=== PATIENT | male | born 1960 | race African-American/Black ===

== ENCOUNTER 2021-07-27 15:19 | Inpatient (IN) | payer MEDICARE, MEDICAID ==
[~2021-07-27] VITALS: Ht 152.4 cm; Wt 54.0 kg
--- NOTE | ~2021-07-27 | CON ---
[address] [address] CONSULTATION Name: AIMEE RINALDI Room: [address] IN .R.#: [id number] Admission: 07/28/21 Attend Phys: Bo Villanueva MD Discharge: Date of : 56 Report #: [id number] THIS REPORT FOR: cc: PINA - No family physician/PCP PINA - No family physician/PCP Jazzmine Jimenez MD ~ DATE OF CONSULTATION: 08/02/2021 REASON FOR CONSULTATION: Colon mass. REQUESTING PHYSICIAN: Bo Villanueva MD HISTORY OF PRESENT ILLNESS: The patient is a 60-year-old -Cuban male who presented to Emergency Room with complaints of fever and cough, sneezing. He was diagnosed with influenza B. On admission, he also mentioned that he has been having vomiting for over 2 weeks and has not had a bowel movement for several weeks. He had a CT of abdomen and pelvis done, which showed colonic mass with multiple liver masses. Ascending colonic mass was obstructing. Dr. Cali was consulted for surgical evaluation. The patient underwent right hemicolectomy. Oncology consult is requested. He is doing okay. He does not have fevers. He is a quite poor historian. He says he came to the hospital because he had ____ "not because of abdominal pain." He does not know if he had been losing weight. He does not have nausea. Currently, he is recovering from surgery quite well. PAST MEDICAL HISTORY: Hypertension. SOCIAL HISTORY: He lives alone. He says he does not have any family. He uses marijuana. He lives in the "hotel." FAMILY HISTORY: Noncontributory. REVIEW OF SYSTEMS: See above, otherwise all other systems negative. PHYSICAL EXAMINATION: GENERAL: Reveals a thin man with poor dentition, not in acute distress. VITAL SIGNS: Blood pressure 128/83, heart rate is 82, temperature 98.2, respirations 16. HEENT: Multiple tooth absent. NECK: Supple. HEART: Normal S1, S2. LUNGS: Clear. ABDOMEN: Soft. EXTREMITIES: Lower extremities, no edema. MENTAL STATUS: Alert, oriented x 3. There [place] [address] CONSULTATION Name: AIMEE RINALDI Room: [address] IN [facility]#: [id number] Admission: 07/28/21 Attend Phys: Bo Villanueva MD Discharge: Date of : 56 Report #: [id number] lymphadenopathy. SKIN: Does not reveal rash. LABORATORY DATA: WBC 6.3, hemoglobin 8.8, platelets 265. MCV 74.6. Sodium 133, potassium 3.0, BUN 11, creatinine 0.8. CEA 625, ferritin 28, total iron 16, TIBC 216. CT of chest, abdomen and pelvis reviewed, it shows ascending colon mass obstructing, multiple liver lesions suggestive of hemangiomas, metastatic disease not excluded. ASSESSMENT AND PLAN: 1. Colon cancer, most likely adenocarcinoma, status post surgery. Pathology is pending. Liver lesions are suspicious for metastatic disease. CEA is very high. I am not sure if biopsy of liver lesions has been done during surgery. If not, this needs to be evaluated. Recommend to consider MRI of the abdomen and possible biopsy of liver lesions if MRI shows metastatic disease. 2. Anemia, iron deficiency. The patient will need iron supplementation when he is discharged from the hospital. We will make final recommendations regarding systemic chemotherapy if pathology results are reviewed. Thank you very much for allowing me to participate in the care of this patient. By: 1839 27Jazzmine Jimenez MD /nt
--- NOTE | ~2021-07-27 | OP ---
[address] [address] OPERATIVE REPORT Name: AIMEE RINALDI Room: [address] IN .R.#: [id number] Admission: 07/28/21 Attend Phys: Bo Villanueva MD Discharge: Date of : 56 Report #: [id number] THIS REPORT FOR: cc: FAM - No family physician/PCP FAM - No family physician/PCP Abelino Cali DO ~ DATE OF SURGERY: 07/30/2021 PREOPERATIVE DIAGNOSIS: Obstructing right colon tumor and small bowel obstruction. POSTOPERATIVE DIAGNOSIS: Obstructing right colon tumor and small bowel obstruction. PROCEDURES PERFORMED: 1. Exploratory laparotomy. 2. Right hemicolectomy. 3. Lysis of adhesions. 4. Placement of Prevena wound dressing. SURGEON: Abelino Cali DO CO-SURGEON: Brenden, PGY5. FOLDER SEAMER: Emily, PGY-1. ANESTHESIA: General. ESTIMATED BLOOD LOSS: 30. SPECIMEN: Right colon. HISTORY OF PRESENT ILLNESS: The patient is a 60-year-old male who was admitted from the Emergency Room with concern for a small-bowel obstruction on CT scan, he did have evidence of what looks like an obstructing cecal mass. We discussed the need for urgent surgery to include right hemicolectomy. Risks, benefits and alternatives discussed at length with him and he agreed to proceed with surgery. DESCRIPTION OF PROCEDURE: After consent was obtained, the patient was taken to the operating room and placed in the supine position. SCDs applied to bilateral lower extremities. The patient was safety belted to the bed, 2 grams Ancef and 500 mg of Flagyl were given for surgical prophylaxis. The patient underwent general endotracheal anesthesia without any complications. The patient's abdomen was prepped and draped in the standard sterile fashion. Arreola catheter was placed. Timeout was performed to confirm patient and procedure, a 10 blade scalpel was used to make an incision from just below the [place] [address] OPERATIVE REPORT Name: AIMEE RINALDI Room: [address] IN [facility].#: [id number] Admission: 07/28/21 Attend Phys: Bo Villanueva MD Discharge: Date of : 56 Report #: [id number] xiphoid. Electrocautery was used for hemostasis and to dissect down to the level of fascia along the extent of the incision. The fascia was scored, grasped between 2 Kochers and a finger was used to bluntly into the peritoneum. Finger was used to guide further extension of the fascia along the entirety of the incision. We immediately encountered a very dilated small intestine. The small intestine was eviscerated from the abdomen. The right colon was visualized and the cecum appeared to be very dilated. Upon palpation along the ascending colon, an obstructing mass was palpated with obvious decompression of the transverse colon. The liver was then palpated and the surface of the liver appeared to be smooth. There was one small lesion in the very far lateral aspect of the liver and based on imaging appeared to be a possible hemangioma. Sigmoid colon was palpated down towards the rectum. There was no evidence of any other masses. At this point, the cecum was mobilized from the lateral wall of the abdomen and externalized. This was carried along the ascending colon to the mid transverse colon. Once the colon was eviscerated from the abdomen, our plane of resection was planned. The transverse colon was resected just proximal to the right branch of the middle colic artery. The terminal ileum was then resected and the LigaSure device was used to ligate the mesocolon. Specimen included distal terminal ileum, cecum, ascending colon and proximal transverse colon. This was sent for pathologic evaluation. We then ran the small bowel from the terminal ileum to the ligament of Treitz and tried to milk as much of the fluid back into the stomach and fluid was suctioned out via the NG tube by the anesthesia team. At this point, there were some interloop adhesions between the mid and small bowel that were taken down carefully with Metzenbaum scissors and electrocautery. Once those adhesions were freed up, we turned our attention towards creating our anastomosis. A 70 RENETTA stapling device was used to create a common channel between the transverse colon and terminal ileum. A TA 60 device was used to close our common enterotomy. Three crotch stitches using a 2-0 Vicryl were placed at the termination of our staple line. The mesenteric defect was reapproximated with a running 2-0 Vicryl suture. At this point, the abdomen was irrigated with 2 liters of warm saline. All the small bowel was inserted back into the abdomen. Two sutures of #1 looped PDS were used to reapproximate the fascia in the midline. Subcutaneous tissue was carefully approximated with 3-0 Vicryl. The skin incision reapproximated with philipp. A 13 cm Prevena wound VAC was placed over the incision. All needle, instrument and sponge counts correct at the end of the case. The patient was then awoken from general anesthesia and transferred to PACU in stable condition. By: 0904 [id number] Cali, DO /nt
[2021-07-27 15:44] VITALS: BP 155/112
[2021-07-27 16:16] LABS: INFLUENZA A ANTIGEN Negative (Negative)
[2021-07-27 23:45] LABS: ABSOLUTE LYMPHOCYTES 0.4 thou/uL (0.8-5.3); ABSOLUTE MONOCYTES 0.8 thou/uL (0.0-1.2); ABSOLUTE NEUTROPHILS 8.9 thou/uL (1.6-8.1); BASOPHILS 0.1 %; HEMATOCRIT 42.4 % (42.0-52.0); LYMPHOCYTES 3.8 %; MCH 24.7 pg (26.0-34.0); MCHC 33.1 g/dL (28.0-37.0); MCV 74.6 fL (80.0-100.0); MONOCYTES 7.9 %; MPV 8.3 fl. (7.2-11.1); NUCLEATED RBCS 0 /100WBC; PLATELET COUNT* 465 thou/uL (150-400); POLYS 88.2 %; RBC 5.69 mil/uL (4.50-6.00); RDW-CV 16.6 % (10.5-14.5); WBC 10.1 thou/uL (4.0-11.0)
[2021-07-28 00:23] LABS: CALCIUM 9.9 mg/dL (8.5-10.1); CREATININE 1.7 mg/dL (0.6-1.3); POTASSIUM 3.9 mmol/L (3.5-5.1)
[2021-07-28 07:42] VITALS: BP 142/104
[2021-07-28 10:36] VITALS: BP 142/107
[2021-07-28 11:04] VITALS: BP 157/119
[2021-07-28 11:42] LABS: CALCIUM 8.6 mg/dL (8.5-10.1); CREATININE 1.3 mg/dL (0.6-1.3); POTASSIUM 3.2 mmol/L (3.5-5.1)
[2021-07-28 17:32] VITALS: BP 156/105
[2021-07-28 20:00] VITALS: BP 146/96
[2021-07-29 04:45] LABS: ABSOLUTE LYMPHOCYTES 0.6 thou/uL (0.8-5.3); ABSOLUTE NEUTROPHILS 5.3 thou/uL (1.6-8.1); BASOPHILS 0.3 %; EOSINOPHILS 0.5 %; HEMATOCRIT 32.7 % (42.0-52.0); LYMPHOCYTES 8.9 %; MCH 24.6 pg (26.0-34.0); MCHC 33.1 g/dL (28.0-37.0); MCV 74.2 fL (80.0-100.0); MONOCYTES 14.9 %; MPV 8.5 fl. (7.2-11.1); NUCLEATED RBCS 0 /100WBC; POLYS 75.4 %; RBC 4.41 mil/uL (4.50-6.00); RDW-CV 16.6 % (10.5-14.5)
[2021-07-29 04:46] LABS: HEMOGLOBIN 10.8 gm/dL (14.0-18.0); PLATELET COUNT* 284 thou/uL (150-400)
[2021-07-29 04:51] LABS: ALBUMIN 2.7 g/dL (3.4-5.0); CALCIUM 8.2 mg/dL (8.5-10.1); POTASSIUM 3.4 mmol/L (3.5-5.1); TOTAL BILIRUBIN 0.4 mg/dL (<0.1-1.0); TOTAL PROTEIN 6.1 g/dL (6.4-8.2)
[2021-07-29 05:16] LABS: % SATURATION 7 % (20-39); IRON 16 ug/dL (50-175)
[2021-07-29 06:00] VITALS: BP 139/100
[2021-07-29 06:00] LABS: ESR (SEDRATE) 5 mm/hr (0-20)
--- NOTE | 2021-07-29 10:59 | EKG ---
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 : 1960 Requested By: Abelino Cali Order Number: [id number] Marga MD: Sixto Aguilar Measurements Intervals [place] Rate: 80 P: NC: QRS: -35 QRSD: 101 T: 45 QT: 379 QTc: 438 Interpretive Statements Sinus rhythm Left ventricular hypertrophy Inferior infarct, old Anterior infarct, old Baseline wander in lead(s) V2,V6 No previous ECG available for comparison Electronically Signed On 07-29-2021 10:59:22 BALLET TEACHER by Sixto Aguilar [email or web address] <ELECTRONICALLY SIGNED> By: Sixto Aguilar MD, FAC 07/29/21 1059 1029 1029 Sixto Aguilar MD, [facility] /EPI
[2021-07-29 11:24] VITALS: BP 138/77
[2021-07-29 17:25] VITALS: BP 133/76
[2021-07-29 20:23] VITALS: BP 143/107
[2021-07-30 00:45] VITALS: BP 140/99
[2021-07-30 01:32] VITALS: BP 140/99
[2021-07-30 04:12] LABS: ABSOLUTE LYMPHOCYTES 0.5 thou/uL (0.8-5.3); ABSOLUTE NEUTROPHILS 8.2 thou/uL (1.6-8.1); BASOPHILS 0.2 %; HEMATOCRIT 36.4 % (42.0-52.0); HEMOGLOBIN 11.9 gm/dL (14.0-18.0); LYMPHOCYTES 4.7 %; MCH 24.3 pg (26.0-34.0); MCHC 32.6 g/dL (28.0-37.0); MCV 74.5 fL (80.0-100.0); MONOCYTES 10.7 %; MPV 8.3 fl. (7.2-11.1); NUCLEATED RBCS 0 /100WBC; POLYS 84.4 %; RBC 4.88 mil/uL (4.50-6.00); RDW-CV 16.7 % (10.5-14.5); WBC 9.7 thou/uL (4.0-11.0)
[2021-07-30 04:31] LABS: INR 1.4; PROTIME 14.5 Seconds (9.20-11.50)
[2021-07-30 04:34] LABS: CALCIUM 8.5 mg/dL (8.5-10.1); CREATININE 0.8 mg/dL (0.6-1.3); MAGNESIUM 2.1 mg/dL (1.8-2.4); PHOSPHORUS* 2.2 mg/dL (2.5-4.9)
[2021-07-30 04:44] LABS: PLATELET COUNT* 375 thou/uL (150-400)
[2021-07-30 12:02] VITALS: BP 135/99
[2021-07-30 12:09] VITALS: BP 128/90
[2021-07-30 17:42] VITALS: BP 133/88
[2021-07-30 20:00] VITALS: BP 134/102
[2021-07-31] VITALS: BP 118/81
[2021-07-31 04:00] VITALS: BP 112/78
[2021-07-31 04:36] LABS: HEMATOCRIT 36.8 % (42.0-52.0); MCH 24.1 pg (26.0-34.0); MCHC 32.5 g/dL (28.0-37.0); MCV 73.9 fL (80.0-100.0); NUCLEATED RBCS 0 /100WBC; PLATELET COUNT* 358 thou/uL (150-400); RBC 4.98 mil/uL (4.50-6.00); RDW-CV 16.7 % (10.5-14.5); WBC 15.1 thou/uL (4.0-11.0)
[2021-07-31 05:05] LABS: CALCIUM 7.9 mg/dL (8.5-10.1); CREATININE 1.1 mg/dL (0.6-1.3); POTASSIUM 3.1 mmol/L (3.5-5.1)
[2021-07-31 06:34] LABS: ABSOLUTE LYMPHOCYTES 0.5 thou/uL (0.8-5.3); ABSOLUTE MONOCYTES 1.1 thou/uL (0.0-1.2); ABSOLUTE NEUTROPHILS 13.6 thou/uL (1.6-8.1); PLATELET ESTIMATE ADEQUATE
[2021-07-31 06:35] LABS: HYPOCHROMASIA 2+; MICROCYTES 1+; TARGET CELLS 1+
[2021-07-31 09:00] VITALS: BP 122/86
[2021-07-31 13:44] VITALS: BP 126/88
[2021-07-31 19:02] VITALS: BP 126/89
[2021-07-31 20:00] VITALS: BP 111/78
[2021-08-01] VITALS: BP 138/100
[2021-08-01 08:10] VITALS: BP 129/87
[2021-08-01 12:51] LABS: ABSOLUTE LYMPHOCYTES 0.7 thou/uL (0.8-5.3); ABSOLUTE MONOCYTES 0.7 thou/uL (0.0-1.2); ABSOLUTE NEUTROPHILS 10.7 thou/uL (1.6-8.1); BASOPHILS 0.1 %; EOSINOPHILS 0.2 %; HEMATOCRIT 28.2 % (42.0-52.0); MCH 24.1 pg (26.0-34.0); MCHC 32.2 g/dL (28.0-37.0); MONOCYTES 6.1 %; MPV 7.9 fl. (7.2-11.1); NUCLEATED RBCS 0 /100WBC; POLYS 87.6 %; RBC 3.75 mil/uL (4.50-6.00); WBC 12.2 thou/uL (4.0-11.0)
[2021-08-01 12:58] LABS: HEMOGLOBIN 9.1 gm/dL (14.0-18.0); PLATELET COUNT* 266 thou/uL (150-400)
[2021-08-01 13:07] LABS: CALCIUM 7.6 mg/dL (8.5-10.1); MAGNESIUM 1.9 mg/dL (1.8-2.4); PHOSPHORUS* 1.7 mg/dL (2.5-4.9)
[2021-08-01 13:10] LABS: POTASSIUM 2.9 mmol/L (3.5-5.1)
[2021-08-01 16:00] VITALS: BP 128/93
[2021-08-01 20:00] VITALS: BP 108/83
[2021-08-02 02:26] VITALS: BP 128/83
[2021-08-02 08:35] LABS: HEMOGLOBIN 8.8 gm/dL (14.0-18.0); MCH 24.3 pg (26.0-34.0); MCHC 32.5 g/dL (28.0-37.0); MCV 74.6 fL (80.0-100.0); MPV 7.7 fl. (7.2-11.1); RBC 3.62 mil/uL (4.50-6.00); RDW-CV 17.2 % (10.5-14.5); WBC 6.3 thou/uL (4.0-11.0)
[2021-08-02 08:49] LABS: CALCIUM 7.5 mg/dL (8.5-10.1); CREATININE 0.8 mg/dL (0.6-1.3); MAGNESIUM 1.7 mg/dL (1.8-2.4)
[2021-08-02 09:40] VITALS: BP 139/96
[2021-08-02 12:45] VITALS: BP 150/105
[2021-08-02 16:15] LABS: MAGNESIUM 1.6 mg/dL (1.8-2.4); POTASSIUM 3.1 mmol/L (3.5-5.1)
[2021-08-02 20:00] VITALS: BP 138/98
[2021-08-02 22:17] LABS: MAGNESIUM 1.7 mg/dL (1.8-2.4); POTASSIUM 3.2 mmol/L (3.5-5.1)
[2021-08-03 01:26] VITALS: BP 139/95
[2021-08-03 05:49] LABS: HEMATOCRIT 28.3 % (42.0-52.0); HEMOGLOBIN 9.4 gm/dL (14.0-18.0); MCH 24.3 pg (26.0-34.0); MCV 73.5 fL (80.0-100.0); MPV 7.8 fl. (7.2-11.1); RBC 3.85 mil/uL (4.50-6.00); RDW-CV 17.1 % (10.5-14.5); WBC 5.4 thou/uL (4.0-11.0)
[2021-08-03 06:00] LABS: CALCIUM 7.6 mg/dL (8.5-10.1); CREATININE 0.8 mg/dL (0.6-1.3); POTASSIUM 3.5 mmol/L (3.5-5.1)
[2021-08-03 08:00] VITALS: BP 147/84
[2021-08-03 11:50] VITALS: BP 152/103
[2021-08-03 14:05] VITALS: BP 152/103
[2021-08-03] MEDS ORDERED: IRON325 PO (14:35)
[2021-08-03 15:47] VITALS: BP 152/103
--- NOTE | 2021-08-05 12:06 | PATH ---
[address] [address] PATHOLOGY RPT PROCEDURE Name: SANJAY RINALDI Room: [address] IN [facility].#: [id number] Admission: 07/28/21 Date of : 56 Discharge: 08/03/21 Report #: [id number] Path Case #: [id number] LCA Accession Number: [id number] . 01 Material submitted: . colon - RIGHT COLON. Modifiers: right . 01 Clinical history: . EXPLORATORY LAPAROTOMY(+++) HEMICOLECTOMY(+++) RIGHT COLON TUMOR, SAMLL BOWEL OBSTRUCTION AND POSSIBLE LIVER MASS . 02 Diagnosis: Right colon: - CIRCUMFERENTIAL COLONIC ADENOCARCINOMA, MODERATELY DIFFERENTIATED, FORMING A MASS MEASURING 6 X 3.8 CM IN ASCENDING COLON, WITH TRANSMURAL INVASION TO FOCALLY INVOLVE INKED FREE SEROSAL SURFACE. - Proximal and distal surgical margins free of involvement. - TWO OF EIGHT PERICOLIC LYMPH NODES WITH METASTATIC ADENOCARCINOMA (2/8). SEE COMMENT. (SIMON:rayne; 08/04/2021) . . CASE SUMMARY: (COLON AND RECTUM) Standard(s): AJCC-UICC 8 . SPECIMEN Procedure ___ Right hemicolectomy TUMOR Tumor Site ___ Ascending colon Histologic Type ___ Adenocarcinoma Histologic Grade ___ G2, moderately differentiated Tumor Size ___ Greatest dimension in Centimeters: 6 cm Tumor Extent ___ Invades visceral peritoneum (including tumor continuous with serosal surface through area of inflammation Macroscopic Tumor Perforation ___ Not identified Lymphovascular Invasion: ____ Not identified Perineural Invasion ____ Not identified Number of Tumor Buds (per hot spot field): 1 per hot spot field Tumor [place] Score: Low (0-4) [place] [address] PATHOLOGY RPT PROCEDURE Name: SANJAY RINALDI Room: [address]#: [id number] Admission: 07/28/21 Date of : 56 Discharge: 08/03/21 Report #: [id number] Path Case #: [id number] . Type of Polyp in Which Invasive Carcinoma Arose ___ Tubular adenoma Treatment Effect ___ No known presurgical therapy . MARGINS Margin Status for Invasive Carcinoma ___ All margins negative for invasive carcinoma +Closest Margin(s) to Invasive Carcinoma ___ Radial (circumferential) +Distance from Invasive Carcinoma to Closest Margin Specify in Centimeters: 0.3 cm Margin Status for Non-Invasive Tumor ___ All margins negative for high-grade dysplasia / intramucosal carcinoma and low-grade dysplasia REGIONAL LYMPH NODES Regional Lymph Node Status ___ Tumor present in regional lymph nodes . Number of lymph nodes with tumor: 2 Number of lymph nodes examined: 8 Tumor Deposits: ___ Not identified. Distant Metastases ___ Not applicable . . PATHOLOGIC STAGE CLASSIFICATION (pTNM, AJCC 8th Edition) . pT Category ___ pT4a: Tumor invades# through the visceral peritoneum (including gross perforation of the bowel through tumor and continuous invasion of tumor through areas of inflammation to the surface visceral peritoneum) . pN Category ___ pN1b: Two or three regional lymph nodes are positive . ADDITIONAL FINDINGS +Additional Findings ___ Other (specify): Benign appendix and terminal ileum . SPECIAL STUDIES MICROSATELLITE INSTABILITY REPORT (MSI): . Specimen: Formalin fixed paraffin embedded tissue Specimen ID: [id number], [id number] Reason for testing: To evaluate for evidence of defective mismatch [place] [address] PATHOLOGY RPT PROCEDURE Name: SANJAY RINALDI Fabiana Room: [address]#: [id number] Admission: 07/28/21 Date of : 56 Discharge: 08/03/21 Report #: [id number] Path Case #: [id number] Method: Immunohistochemical staining for the presence or absence of protein expression of one or more of the following MMR protein markers: MLH1, MSH2, MSH6 and PMS2. Tumor type: Colonic adenocarcinoma . Results: MLH1 - Preserved MSH2 - Preserved MSH6 - Preserved PMS2 - Preserved . Mismatch Repair Status: MMR Proficient (MMR-P) . Interpretation: . (MMR-P) All four MMR proteins are preserved within tumor cells. This suggests the presence of normal DNA mismatch repair function within the tumor and an observable defect in mismatch repair is not identified. The likelihood that this patient has an inherited germline mutation syndrome due to defective mismatch repair is reduced but not totally eliminated. If the patient has a strong personal or family history of HPNCC/Aguirre syndrome related cancers (colorectal, endometrial, gastric, ovarian, pancreatic, ureter/renal pelvis, biliary tract, brain, small bowel and Kirsten-Puneet syndrome), consider MSI testing by PCR methodology. Suggest clinical correlation and follow up. . These test results are designed for screening purposes only and are useful tools in identifying cancer patients that are more likely to have Aguirre Syndrome related diagnoses. Tests should be interpreted in the context of clinical findings, family history and laboratory data. Abnormal IHC results for MMR protein expression are not considered diagnostic for Aguirre Syndrome. . (SIMON:rayne; 08/04/2021) S 08/04/2021 1731 Local . 02 Comment: The tumor is seen to directly invade to involve the inked free serosal surface in A8. A tumor metastasis essentially obliterates the lymph node in A14. Blind search for additional possible lymph nodes (A15 through A20), resulted in two incidental additional lymph nodes (A17 and A18). A[address] Arcadio Kwong on 08/04/2021, who agrees with the diagnosis. (SIMON:rayne; 08/04/2021) . 02 Electronically signed: . Israel Slater MD, Pathologist NPI- [id number] [place] [address] PATHOLOGY RPT PROCEDURE Name: SANJAY RINALDI Room: [address] IN M.R.#: [id number] Admission: 07/28/21 Date of : 56 Discharge: 08/03/21 Report #: [id number] Path Case #: [id number] . 01 Gross description: . Received in formalin labeled "Sanjay Rinaldi, right colon" is a hemicolectomy specimen consisting of a segment of terminal ileum (5.2 cm in length, 4.7 cm in diameter), cecum (11.0 x 9.5 x 5.5 cm), appendix (6.5 cm in length, 1.5 cm in diameter), and proximal right colon (6.5 cm in length, ranging from 4.3-7.0 cm in diameter). The proximal and distal margins are closed with staple lines. The serosa is balderas-purple and smooth with a puckered area near the distal aspect measuring 6.0 x 2.0 cm. The specimen is opened to reveal a strictured area and corresponding balderas-brown exophytic mass in the right colon. The mass is circumferential and measures 3.8 cm in length and 6.0 cm in internal circumference. The luminal diameter in the area of the mass is less than 1.0 cm. The bowel proximal to the mass appears dilated with flattened folding. The bowel distal to the mass appears grossly unremarkable. The mass is located 13.4 cm from the proximal staple line margin and 3.7 cm from the distal staple line margin. The serosa deep to the mass is inked blue and the radial margin is inked black. Upon sectioning, the mass grossly invades the pericolonic fat and is located less than 0.1 cm from the serosa and 0.3 cm from the radial margin. The attached pericolonic fat is palpated to reveal 7 pink-balderas lymph nodes ranging from 0.8-1.6 cm in greatest dimension. The appendix is sectioned to reveal a fibrotic cut surface without perforations or fecaliths. Rugby Union Footballer sections of the specimen are submitted as follows: . . A1-A2 proximal margin A3 distal margin A4 ileocecal valve A5 appendix A6-A7 mass to radial margin A8-A9 mass to serosa A10 mass to uninvolved colonic mucosa A11 multiple whole lymph nodes A12-A13 one bisected lymph node in each cassette A14 one lymph node, serially sectioned (grossly positive, less than 0.1 cm from inked radial margin) A15-A20 livestock sales representative pericolonic fat to look blindly for additional lymph nodes ([facility]; 07/31/2021) SY/[facility] 08/04/2021 1731 Local . 02 Pathologist provided ICD-10: C18.2, C77.9 . 02 CPT . 901668, L46827, B21892 Specimen Comment: A courtesy copy of this report has been sent to [phone] [address] PATHOLOGY RPT PROCEDURE Name: NIMCOSANJAY Fabiana Room: [address]#: [id number] Admission: 07/28/21 Date of : 56 Discharge: 08/03/21 Report #: [id number] Path Case #: [id number] Specimen Comment: [id number] Specimen Comment: Report sent to / DR GOMEZ Specimen Comment: A duplicate report has been generated due to demographic updates. Performed at: [address], [place], [place] [id number] MD Arcadio Kwong MD Phone: [phone] Performed at: 02 [facility] Daphnie Rousseau, [place], [place] [id number] MD Israel Slater MD Phone: [phone]
== END 2021-08-03 17:09 | disposition home health service (06) | DRG 329 ==
LOC: M.ERS 15:19 → M.TBA-ER 07-28 04:04 → M.2W 07-28 04:04
PROVIDERS: Emergency Medicine; Internal Medicine; Internal Medicine Gastroenterology; Nurse Practitioner Family; Student in an Organized Health Care Education/Training Program; Surgery; ADMIT Internal Medicine; ATTEND Internal Medicine
PROC: 0DNW0ZZ Release Peritoneum, Open Approach (ICD-10-PCS; principal; 2021-07-30)
PROC: 0DTF0ZZ Resection of Right Large Intestine, Open Approach (ICD-10-PCS; principal; 2021-07-30)
DX: C18.9 Malignant neoplasm of colon, unspecified (principal); R65.11 Systemic inflammatory response syndrome (SIRS) of non-infectious origin with acute organ dysfunction; K56.609 Unspecified intestinal obstruction, unspecified as to partial versus complete obstruction; N17.9 Acute kidney failure, unspecified; D50.9 Iron deficiency anemia, unspecified; J10.1 Influenza due to other identified influenza virus with other respiratory manifestations; Z60.2 Problems related to living alone; K59.00 Constipation, unspecified; F12.90 Cannabis use, unspecified, uncomplicated; K63.9 Disease of intestine, unspecified; E86.0 Dehydration; Z20.822 Contact with and (suspected) exposure to COVID-19; I10 Essential (primary) hypertension; K57.30 Diverticulosis of large intestine without perforation or abscess without bleeding; E83.39 Other disorders of phosphorus metabolism; R16.0 Hepatomegaly, not elsewhere classified; E87.6 Hypokalemia; D18.09 Hemangioma of other sites; Z82.49 Family history of ischemic heart disease and other diseases of the circulatory system